=== PATIENT | female | born 1980 | race Native Hawaiian/Other Pacific Islander ===

== ENCOUNTER 2020-03-18 15:39 | Outpatient (CLI) | payer BC ==
[~2020-03-18] VITALS: Ht 163.8 cm; Wt 75.3 kg
[2020-03-18 16:38] LABS: PLATELET COUNT 239 K/uL (152-353)
[2020-03-18 17:10] LABS: POTASSIUM 3.8 mmol/L (3.6-5.2)
== END 2020-03-18 21:36 | disposition home or self-care (01) ==
LOC: INF 15:39
PROVIDERS: ATTEND Family Medicine
DX: Z03.89 Encounter for observation for other suspected diseases and conditions ruled out (principal)
CPT/HCPCS: 36591; 80053; 85027; 96365; Q0239